=== PATIENT | male | born 1955 | race Caucasian/White ===

== ENCOUNTER 2024-04-19 16:19 | Emergency (ER) | payer OTHER, BC ==
[~2024-04-19] VITALS: Ht 175.3 cm; Wt 86.2 kg
[~2024-04-19 16:19] MED LIST: ZOCOR
[2024-04-19 17:05] VITALS: BP_SYST 144; PULSE 82; RESP 18; TEMP 98.3; O2SAT 97
[2024-04-19 18:37] VITALS: BP_SYST 125; PULSE 85; RESP 18; TEMP 98.3; O2SAT 98
== END 2024-04-19 18:37 | disposition home or self-care (01) ==
LOC: SED 16:19
DX: S29.012A Strain of muscle and tendon of back wall of thorax, initial encounter (principal); R07.89 Other chest pain; E78.00 Pure hypercholesterolemia, unspecified; Z88.4 Allergy status to anesthetic agent; V89.2XXA Person injured in unspecified motor-vehicle accident, traffic, initial encounter; Y93.89 Activity, other specified; Y92.89 Other specified places as the place of occurrence of the external cause; Y99.8 Other external cause status
CPT/HCPCS: 71045; 72072; 99284